=== PATIENT | female | born 1945 | race Caucasian/White ===

== ENCOUNTER 2018-09-21 00:42 | Outpatient (CLI) | payer MEDICARE, SELFPAY ==
--- NOTE | 2018-09-21 11:58 | DI.MAMMO_ITS ---
SYMPTOM/DIAGNOSIS: SCREENING, Z12.31 MAMMOGRAMS: Mammograms were interpreted according to the usual protocol including computer analysis with CAD system, tomosynthesis and C view imaging. Comparison with prior examinations. No masses or microcalcifications are seen. There is nothing to suggest malignancy. Breast density D. IMPRESSION: Category 1-D. Negative mammogram. Routine screening is recommended. SA ASSESSMENT OF FINDINGS: Negative. Category 1. Patient will receive a letter notifying them of these results. BI-RADS category D. The breasts are extremely dense, which lowers the sensitivity of mammography.
== END 2018-09-21 01:02 ==
PROVIDERS: PCP Family Medicine; Visit Provider Family Medicine
DX: Z12.31 Encounter for screening mammogram for malignant neoplasm of breast (principal)
CPT/HCPCS: 77063; 77067

== ENCOUNTER 2019-01-18 08:30 | Outpatient (REF) | payer MEDICARE, SELFPAY ==
[2019-01-18 13:48] LABS: HCT 38.4 % (36.0-46.0); HGB 12.3 g/dL (12.0-15.5); Mean Corpuscular Hemoglobin 30.6 pg (27.0-33.0); Mean Corpuscular Volume 95.5 fL (80-95); Mean Platelet Volume 11.3 fL (8.0-11.0); Platelet Count 195 x1000/uL (130-400); RBC 4.02 m/cumm (4.00-5.20); White Blood Cell Count 3.69 k/cumm (4.4-10.8)
[2019-01-18 14:16] LABS: ALT 16 U/L (12-78); AST 16 U/L (15-37); Albumin 4.1 g/dL (3.4-5.0); Alkaline Phosphatase 70 U/L (46-116); Anion Gap 7.1 mmol/L (3-11); BUN 16 mg/dL (7-18); Bilirubin, Total 0.4 mg/dL (0.2-1.0); CO2 31.9 mmol/L (21.0-32.0); CREATININE 0.63 mg/dL (0.55-1.02); Calcium 9.2 mg/dL (8.5-10.1); Chloride 105 mmol/L (98-107); Glucose 80 mg/dL (70-100); Potassium 3.9 mmol/L (3.5-5.1); Sodium 144 mmol/L (136-145); TSH (W/Ref FT4) 7.38 uIU/mL (0.358-3.74); Total Protein 7.2 g/dL (6.4-8.2)
[2019-01-18 14:50] LABS: FREE T4 1.04 ng/dL (0.76-1.46)
== END 2019-01-18 08:50 ==
LOC: NCHCN 08:30
PROVIDERS: PCP Family Medicine; Visit Provider Family Medicine
DX: I10 Essential (primary) hypertension (principal); R53.83 Other fatigue; L85.3 Xerosis cutis
CPT/HCPCS: 80053; 85027; 84439; 84443

== ENCOUNTER 2020-09-12 07:42 | Outpatient (CLI) | payer MEDICARE, SELFPAY ==
[2020-09-15 04:46] LABS: Patient Race White; SARS-CoV-2 RNA Undetected (Undetected); SARS-CoV-2 Specimen Source Nasal
== END 2020-09-12 08:02 ==
PROVIDERS: PCP Family Medicine; Visit Provider Family Medicine
DX: Z20.828 Contact with and (suspected) exposure to other viral communicable diseases (principal)
CPT/HCPCS: U0003

== ENCOUNTER 2020-09-20 18:18 | Outpatient (REF) | payer MEDICARE, SELFPAY ==
[2020-09-22 16:06] LABS: SARS-CoV-2 RNA Not Detected (NotDetected); SARS-CoV-2 RNA Source Nasal/Nares
== END 2020-09-20 18:38 ==
LOC: LBN 18:18
PROVIDERS: PCP Family Medicine; Visit Provider Nurse Practitioner Adult Health
DX: Z11.59 Encounter for screening for other viral diseases (principal)
CPT/HCPCS: U0003

== ENCOUNTER 2020-10-10 21:39 | Outpatient (REF) | payer MEDICARE, SELFPAY ==
[2020-10-10 18:27] LABS: Abs Immature Grans 0.04 10^3/uL (0.0-0.06); Absolute Basophil Count 0.05 10^3/uL (0.0-0.2); Absolute Eosinophil Count 0.09 10^3/uL (0.0-0.7); Absolute Lymphocyte Count 1.35 10^3/uL (1.2-3.4); Absolute Monocyte Count 0.77 10^3/uL (0.1-0.8); Absolute Neutrophil Count 4.14 10^3/uL (1.2-6.7); Basophils % 0.8; Eosinophils % 1.4; HCT 38.5 % (36.0-46.0); HGB 11.7 g/dL (11.2-15.7); Immature Grans % 0.6; MCH 30.2 pg (27.0-33.0); MCHC 30.4 % (32.0-36.0); MCV 99.2 fL (80-95); MPV 11.3 fL (8.0-11.0); Neutrophils % 64.2; Nucleated RBC 0 %; Platelet Count 272 10^3/uL (130-400); RBC 3.88 10^6/uL (3.93-5.22); RDW 12.2 % (11.7-14.6); RDW-SD 44.3 fL; WBC 6.44 10^3/uL (4.4-10.8)
[2020-10-10 18:59] LABS: Uric Acid 4.4 mg/dL (2.6-6.0)
[2020-10-10 20:52] LABS: Anion Gap 6.5 mmol/L (3-11); BUN 23 mg/dL (7-18); CO2 30.5 mmol/L (21.0-32.0); CREATININE 0.71 mg/dL (0.55-1.02); Calcium 8.8 mg/dL (8.5-10.1); Chloride 103 mmol/L (98-107); Glucose 99 mg/dL (74-106); Potassium 4.4 mmol/L (3.5-5.1); Sodium 140 mmol/L (136-145)
== END 2020-10-10 21:59 ==
LOC: LBN 21:39
PROVIDERS: PCP Family Medicine; Visit Provider Nurse Practitioner Adult Health
DX: N39.0 Urinary tract infection, site not specified (principal); I10 Essential (primary) hypertension; F03.91 Unspecified dementia, unspecified severity, with behavioral disturbance; R53.83 Other fatigue; E55.9 Vitamin D deficiency, unspecified
CPT/HCPCS: 80048; 87077; 84550; 85025; 87086; 87186

== ENCOUNTER 2020-10-18 04:21 | Outpatient (CLI) | payer MEDICARE, SELFPAY ==
--- NOTE | 2020-10-18 08:00 | RT.EKG_ITS ---
APPROVED REPORT Exam: Resting ECG Patient Location: O HR:79 bpm ECG Measurements Heart Rate 79 AXIS OK 161 P 83 QRSd 81 QRS 68 QT 379 T 71 QTc 436 Conclusion Sinus rhythm...normal P axis, V-rate 60- 99 Normal Electrocardiogram
== END 2020-10-18 04:41 ==
PROVIDERS: PCP Family Medicine; Visit Provider Nurse Practitioner Adult Health
DX: Z13.6 Encounter for screening for cardiovascular disorders (principal); I10 Essential (primary) hypertension; Z02.2 Encounter for examination for admission to residential institution; F03.91 Unspecified dementia, unspecified severity, with behavioral disturbance
CPT/HCPCS: 93005; 93010

== ENCOUNTER 2020-11-28 18:03 | Outpatient (REF) | payer MEDICARE, SELFPAY ==
[2020-11-29 14:58] LABS: COVID-19 RT-PCR Result Not Detected ((See Note))
== END 2020-11-28 18:23 ==
LOC: LBN 18:03
PROVIDERS: PCP Family Medicine; Visit Provider Nurse Practitioner Adult Health
DX: Z11.52 Encounter for screening for COVID-19 (principal)
CPT/HCPCS: U0003

== ENCOUNTER 2020-12-02 18:45 | Outpatient (REF) | payer SELFPAY ==
[2020-12-04 16:11] LABS: COVID-19 RT-PCR UVMMC Result Negative (Negative)
== END 2020-12-02 19:05 ==
LOC: LBN 18:45
PROVIDERS: PCP Family Medicine; Visit Provider Nurse Practitioner Adult Health
DX: Z11.52 Encounter for screening for COVID-19 (principal)
CPT/HCPCS: U0003

== ENCOUNTER 2020-12-20 15:16 | Outpatient (REF) | payer MEDICARE, SELFPAY | END 2020-12-20 15:17 | disposition home or self-care (01) | LOC: LBN 15:16 | PROVIDERS: PCP Family Medicine; Visit Provider Family Medicine | DX: J10.1 Influenza due to other identified influenza virus with other respiratory manifestations (principal) | CPT/HCPCS: 87449 ==

== ENCOUNTER 2021-03-04 12:02 | Outpatient (REF) | payer MEDICARE, SELFPAY ==
[2021-03-04 12:27] LABS: Abs Immature Grans 0.05 10^3/uL (0.0-0.06); Absolute Basophil Count 0.05 10^3/uL (0.0-0.2); Absolute Eosinophil Count 0.07 10^3/uL (0.0-0.7); Absolute Lymphocyte Count 0.89 10^3/uL (1.2-3.4); Absolute Monocyte Count 0.91 10^3/uL (0.1-0.8); Absolute Neutrophil Count 9.61 10^3/uL (1.2-6.7); Basophils % 0.4; Eosinophils % 0.6; HCT 37.8 % (36.0-46.0); HGB 11.8 g/dL (11.2-15.7); Immature Grans % 0.4; Lymphocytes % 7.7; MCH 30.4 pg (27.0-33.0); MCHC 31.2 % (32.0-36.0); MCV 97.4 fL (80-95); MPV 11.5 fL (8.0-11.0); Monocytes % 7.9; Nucleated RBC 0 %; Platelet Count 213 10^3/uL (130-400); RBC 3.88 10^6/uL (3.93-5.22); RDW 13.4 % (11.7-14.6); RDW-SD 47.7 fL; WBC 11.58 10^3/uL (4.4-10.8)
[2021-03-04 12:33] LABS: Anion Gap 10.4 mmol/L (3-11); BUN 40 mg/dL (7-18); CO2 25.6 mmol/L (21.0-32.0); CREATININE 0.8 mg/dL (0.55-1.02); Calcium 9.3 mg/dL (8.5-10.1); Chloride 119 mmol/L (98-107); Glucose 112 mg/dL (74-106); Potassium 4.1 mmol/L (3.5-5.1)
[2021-03-04 12:34] LABS: Sodium 155 mmol/L (136-145)
== END 2021-03-04 12:03 | disposition home or self-care (01) ==
LOC: LBN 12:02
PROVIDERS: PCP Family Medicine; Visit Provider Family Medicine
DX: E86.0 Dehydration (principal)
CPT/HCPCS: 80048; 85025

== ENCOUNTER 2021-03-04 14:58 | Emergency (ER) | payer MEDICARE, SELFPAY ==
[2021-03-04] VITALS (20 sets, daily range): BP systolic 121–136; BP diastolic 67–84; PULSE 83–105; RESP 13–30; TEMP 36.7; O2SAT 91–96
[2021-03-04] MEDS: Normal Saline 1,000 ML 1000 ML IV (15:10)
--- NOTE | 2021-03-04 15:15 | RT.EKG_ITS ---
APPROVED REPORT Exam: Resting ECG Patient Location: E HR:95 bpm ECG Measurements Heart Rate 95 AXIS MI 121 P -16 QRSd 86 QRS -22 QT 403 T 227 QTc 505 Conclusion Sinus rhythm...normal P axis, V-rate 60- 99 Inferior infarct, recent...Q>35mS, ST>0.07mV, T neg, II-aVF Probable anterolateral infarct, acute...ST >0.15mV, V2-V6,I,aVL Prolonged QT interval...QTc >500mS. STEMI 2-3mm ST elevation noted in V3-4. 1-2mm ST elevation noted in II, III, aVF, V5. I have reviewed and interpreted ECG and agree with software generated interpretation. Deep T wave inversions in II, III, aVF, V5-6.
--- NOTE | 2021-03-04 15:16 | W.ED.GENAD ---
Discharge Plan Disposition Patient Disposition: [facility] Condition: Critical Discharge Details Chief Complaint: GenMedical Clinical Impression: ST elevation (STEMI) myocardial infarction Primary Care Provider: Keira Trent ED Provider: Katia Garza Home Meds and New Rx's Prescriptions: No Action fluticasone propionate [Flonase Allergy Relief] 9.9 ML spray,suspension 2 spry NS DAILY Qty: 9.9 RF: 6 lisinopril 10 MG tablet 10 mg PO DAILY Qty: 30 RF: 1 mirtazapine 15 mg Tablet 15 mg PO HS RF: 0 quetiapine [Seroquel] 50 mg Tablet 50 mg PO BID RF: 0 acetaminophen [Tylenol] 325 mg Tablet 650 mg PO PRN PRNRF: 0 Discharge Data Discharge Date/Time-TO BE ENTERED AT DEPARTURE: 03/04/21 16:46 Medical Decision Making <KEY Castro - Last Filed: 03/05/21 22:51> Patient is a 75-year-old female presenting today with decreased p.o. intake per [facility] for the past week. Patient is nonverbal at baseline secondary to her dementia. She has not expressed any pain. She does not demonstrate any shortness of breath. She has been afebrile. They are concerned for dehydration. Patient has not had reported history like this disorder On exam, patient appears nontoxic. She is tachycardic at 99 and does appear dehydrated. Her lips are very dry. Patient declined any oral care. Her answers to questions are very limited if she answers at all. This is reported to be at baseline. Her lungs are clear. Normal cardiac exam. She does have some bilateral lower extremity nonpitting edema. No calf tenderness. 2+ distal pulses. Abdomen is benign. Patient will not let me perform an intraoral exam. Differential is quite broad at this time. However, she does appear significantly dehydrated I do feel that hydration would be appropriate. Will obtain baseline labs, EKG and hydrate the patient. Spoke with patient's brother, who is her primary care provider, Tavares at [phone]. He was unaware of her coming here and is not able to add to recent history. He advises that she does not have advanced directives on file. He states that she has been significantly confused/demented for several years. ECG was obtained and reviewed by Dr. Duggan. Concerning for STEMI. Will consult with the family followed by [facility] cardiology. Spoke again with the patient's brother Tavares. He advised that he would like to pursue all medical management therapies. Will give ASA, plavix and start heparin drip. Will hold on thrombolytics until speaking with cardiology. However, I am concerned that with the patient's current mental state we are unable to obtain accurate history for bleeding risk Consulted with pharmacy. I am concerned that the patient may be unwilling or unable to take p.o. tablets secondary to her mental status. Plan to give aspirin and Plavix rectally. Pharmacy did confirm that this is safe. Patient started on heparin drip. EKG has been pushed to [facility] and consult has been requested for further Will obtain BNP with the patient's lower extremity edema and findings on ECG Contacted by the lab. Sodium is elevated at 157. BUN 38. Troponin 0.3. Consulted with Dr. Link. She was able to review the EKG. We discussed history and lab. She advised as we do not know when his symptoms began, potentially a week ago as the increase of decreased p.o. intake, patient may not be a candidate to immediately go to [facility] [employer] [facility]. Rather, he feels the patient may be poor candidate as she is unable to tolerate anything p.o. and would benefit from echo prior to intervention. We did discuss TPA but given length of time since onset of symptoms as well as patient's profound dementia, I do not feel that patient was a candidate for lytics We are contacted by transfer center once again. Bed is ready. We initially been talking about flying the patient via [facility], nuclear ground transportation is safe for the patient point. Excepting physician is Dr. Salazar. <Damaris Pierce - Last Filed: 03/04/21 17:41> Patient not seen by me. HPI <KEY Castro - Last Filed: 03/05/21 22:51> General Mode of arrival: EMS. Date/Time Provider Initiated Documentation: 03/04/21 15:16. Limitations to Documentation: altered mental status. Information obtained by: RN/MD (nurse caring for patient at [facility]), RN notes reviewed and old records reviewed. HPI Narrative: Patient is a 75-year-old female brought in via EMS concern for decreased p.o. intake. Past medical history pertinent for chronic constipation, hypertension, weight loss, anxiety, GERD, depression, dementia. Patient is nonverbal at baseline. They are concerned for dehydration and advised that he should be transported here for further care. Patient has severe dementia and is nonverbal at baseline Related Data Home Medications Medication Instructions Recorded Confirmed fluticasone propionate [Flonase 2 spry NS DAILY #9.9 ml 07/31/17 Allergy Relief] lisinopril 10 mg PO DAILY #30 tab-cap 10/23/17 03/04/21 acetaminophen [Tylenol] 650 mg PO PRN PRN 03/04/21 03/04/21 mirtazapine 15 mg PO HS 03/04/21 03/04/21 quetiapine [Seroquel] 50 mg PO BID 03/04/21 03/04/21 Previous Rx's Medication Instructions Recorded fluticasone propionate [Flonase 2 spry NS DAILY #9.9 ml 07/31/17 Allergy Relief] lisinopril 10 mg PO DAILY #30 tab-cap 10/23/17 Allergies Allergy/AdvReac Type Severity Reaction Status Date / Time No Known Allergies Allergy Unverified 03/04/21 15:11 General Stated Complaint: GenMedical VON: 3 Review of Systems <KEY Castro - Last Filed: 03/05/21 22:51> Unobtainable due to mental status PFS <KEY Castro - Last Filed: 03/05/21 22:51> Medical History Arthritis Chronic constipation Diverticulitis Essential hypertension Hemorrhoids History of spontaneous Low back pain Osteoporosis Tubular adenoma Weight loss Surgical History Colonoscopy - IV Sedation (~1997) 2012 Colonoscopy - IV Sedation (10/25/16) 2012 Laparoscopy, diagnostic Ligation of fallopian tube 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 Sister , cardiac at age 60. Heart disease Sister No problems noted. Social History Smoking/Tobacco Use Status: Never Smoking risk assessment performed?: Yes Drug use: Never Do you feel safe in your relationship?: Yes Exam <KEY Castro - Last Filed: 03/05/21 22:51> Const General: cooperative, healthy appearing, comfortable, no acute distress and well developed Nutritional Appearance: average body habitus Orientation: alert, awake and other (Patient is nonverbal) [facility] Head: normal to inspection Mouth: mucous membranes dry (dry, patient refuses to open mouth) Resp Effort & Inspection: normal respiratory effort and no respiratory distress Auscultation: clear to auscultation bilaterally, no rales, no rhonchi and no wheezes Cardio Rate: regular rate Rhythm: regular rhythm Heart Sounds: S1 normal and S2 normal GI Inspection: normal to inspection Palpation: soft, no hepatosplenomegaly and nontender Auscultation: normal bowel sounds Skin General skin exam: no rashes or lesions noted Trauma: no lacerations or abrasions Neuro General: patient alert, patient awake and not oriented x3 Extrem General: capillary refill normal, pedal edema present (1+ nonpitting bilateral lower extremity edema), no calf tenderness and abnormal gait (Nonambulatory at this time.) Course <KEY Castro - Last Filed: 03/05/21 22:51> Vital Signs Vital signs: Vital Signs Temperature 36.7 C 03/04/21 15:00 Pulse 99 H 03/04/21 15:00 Respiratory Rate 20 03/04/21 15:00 Blood Pressure 135/80 03/04/21 15:00 Pulse Oximetry 93 03/04/21 15:00 Temperature 36.7 C 03/04/21 15:00 Pulse 99 H 03/04/21 15:00 Respiratory Rate 20 03/04/21 15:00 Blood Pressure 135/80 03/04/21 15:00 Pulse Oximetry 93 03/04/21 15:00 Oxygen Delivery Method Room Air 03/04/21 15:00 Oxygen Flow Rate 0 03/04/21 15:00 Pain Level 0 03/04/21 15:00
[2021-03-04 15:31] LABS: Abs Immature Grans 0.04 10^3/uL (0.0-0.06); Absolute Eosinophil Count 0.08 10^3/uL (0.0-0.7); Absolute Lymphocyte Count 0.97 10^3/uL (1.2-3.4); Absolute Monocyte Count 1.01 10^3/uL (0.1-0.8); Basophils % 0.4; Eosinophils % 0.7; HCT 38.1 % (36.0-46.0); HGB 11.6 g/dL (11.2-15.7); Immature Grans % 0.4; Lymphocytes % 8.6; MCH 29.8 pg (27.0-33.0); MCHC 30.4 % (32.0-36.0); MCV 97.9 fL (80-95); MPV 11.5 fL (8.0-11.0); Monocytes % 8.9; Nucleated RBC 0 %; Platelet Count 223 10^3/uL (130-400); RBC 3.89 10^6/uL (3.93-5.22); RDW 13.4 % (11.7-14.6); WBC 11.31 10^3/uL (4.4-10.8)
[2021-03-04 15:32] LABS: Absolute Basophil Count 0.05 10^3/uL (0.0-0.2); Absolute Neutrophil Count 9.16 10^3/uL (1.2-6.7)
[2021-03-04 15:42] LABS: Lactate 0.7 mmol/L (0.6-1.4)
[2021-03-04 15:50] LABS: ALT 16 U/L (14-59); AST 18 U/L (15-37); Alkaline Phosphatase 90 U/L (46-116); Anion Gap 12.4 mmol/L (3-11); BUN 38 mg/dL (7-18); Bilirubin, Total 0.4 mg/dL (0.2-1.0); CO2 25.6 mmol/L (21.0-32.0); CREATININE 0.9 mg/dL (0.55-1.02); Calcium 8.8 mg/dL (8.5-10.1); Chloride 119 mmol/L (98-107); Glucose 111 mg/dL (74-106); Magnesium 2.5 mg/dL (1.8-2.4); Potassium 3.8 mmol/L (3.5-5.1); Total Protein 7.1 g/dL (6.4-8.2)
[2021-03-04 15:52] LABS: Lipase 68 U/L (73-393)
[2021-03-04 15:54] LABS: Sodium 157 mmol/L (136-145)
--- NOTE | 2021-03-04 16:00 | DI.RAD_ITS ---
EXAM: XR PORTABLE CHEST AP CLINICAL HISTORY: elevated troponin. TECHNIQUE: 2D digital imaging was performed. COMPARISON: Prior chest x-ray April 2018 FINDINGS: Heart size is upper normal. The mediastinum is not widened. Right lung is clear. Slightly increased markings in left lung base noted. Possible slight blunting of left costophrenic angle which may indicate a small amount left pleural fluid.. IMPRESSION: Possible small left pleural effusion. Slightly increased markings left lower lobe.Recommend nonporta ble PA and lateral views when clinically possible. DATA REPOSITORY: RADIATION DOSE DELIVERED: All CT scans at this facility use at least one of these dose optimization techniques: automated exposure control; mA and/or kV adjustment per patient size (includes targeted e xams where dose is matched to clinical indication); or iterative reconstruction.
[2021-03-04 16:01] LABS: Bilirubin Negative (Negative); Blood Small (Negative); Clarity Cloudy (Clear); Glucose Negative (Negative); Ketones 15 mg/dL (Negative); Leukocyte Esterase Small (Negative); Nitrite Negative (Negative); Specific Gravity >= 1.030 (1.005-1.025); Urobilinogen 0.2 EU/dL (Up TO 0.2); pH 5.5 (5-8)
[2021-03-04] MEDS: Clopidogrel 300 MG TAB PO (16:01)
[2021-03-04] MEDS: Aspirin 300 MG SUPP (16:01)
[2021-03-04 16:15] LABS: WBC >50 HPF (0-5)
[2021-03-04 16:16] LABS: Bacteria Packed HPF (Negative); C & S Indicated? No/Sq. Contamination; Epithelial Cells Many HPF (Negative)
[2021-03-04] MEDS: Normal Saline 1,000 ML 125 ML IV (16:20)
[2021-03-04 16:21] LABS: PTT Activated 22.2 sec (21.0-27.5); Prothrombin Time 14.4 sec (9.3-11.0)
[2021-03-04 16:30] LABS: NT-proBNP 7397 pg/mL (<300)
[2021-03-04 16:31] LABS: INR 1.4 (0.9-1.1)
--- NOTE | 2021-03-04 16:32 | DI.VRAD_ITS ---
PROCEDURE INFORMATION: Exam: XR Chest Exam date and time: 03/04/2021 4:12 PM Age: 75 years old Clinical indication: Abnormal findings; Abnormal diagnostic tests; Other: Elevated troponin TECHNIQUE: Imaging protocol: XR of the chest. Views: 1 view. Other technique: Portable exam. COMPARISON: CR CHEST 2 VIEWS PA,LAT 04/27/2018 4:33 PM FINDINGS: Lungs: The lungs remain slightly hyperlucent suggesting COPD. The pulmonary vascularity is at the upper limits of normal. Pleural spaces: Probable small left pleural effusion with mild left lower lobe atelectasis. Heart/Mediastinum: Heart size upper limits of normal. Vasculature: Aortic ectasia again seen. Bones/joints: Unremarkable. IMPRESSION: 1. Possible early congestive heart failure. 2. Minimal left atelectasis and probable trace effusion. Dictated and Authenticated by: Valentine Galvez MD. Ordering:ELI Montalvo MD
== END 2021-03-04 16:46 | disposition short-term general hospital (02) ==
LOC: ER 16:17
PROVIDERS: Emergency Provider Physician Assistant; PCP Family Medicine
DX: I21.3 ST elevation (STEMI) myocardial infarction of unspecified site (principal)
CPT/HCPCS: 80053; 83690; 93005; 96361; 96365; 99285; 71045; 81003; 81015; 83605; 83735; 83880; 84484; 85025; 85610; 85730; 93010